=== PATIENT | male | born 1945 | race Caucasian/White ===

== ENCOUNTER 2017-08-27 16:51 | Inpatient (IN) | payer MEDICARE, MEDICAID ==
[~2017-08-27] VITALS: Wt 73.9 kg
--- NOTE | ~2017-08-27 | DS ---
[place], [place] [facility]CHARGE [id number] #: [id number] ROOM: 309 DOCTOR: DEVAN ZHANG MD BIRTHDATE: [birth year] DOS: 09/04/2017 CHIEF COMPLAINT: "I don't do that no more." HISTORY OF PRESENT ILLNESS: This is a 71-year-old white male who is known to me from his stay at [facility] in [place], [place]. The patient is admitted to the [facility] for an apparent suicide attempt. The patient was found on the day prior to admission with a sheet wrapped around his neck, stating that he was attempting to hang himself. This represents an acute change and he has never done anything like that per his brother, The patient has had a significant change in mental status that was quite precipitous starting in June of this year. 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 The patient has been residing at [facility] for approximately 1 month and has never once voiced suicidal thoughts. He has had a history of yelling profanities at staff and has been very volatile at times. He was admitted now to rule out any organic factors, to engage in individual and arthur milieu activity, to fully assess lethality, stabilize on medication, returning to the least restrictive environment when stable. PAST MEDICAL HISTORY: Remarkable for an allergy to CEFAZOLIN as well as a history of aortic stenosis, AFib, bilateral cataracts, GERD, glaucoma, history of ITP, neurogenic bladder and osteoarthritis. SUMMARY OF HOSPITAL COURSE: The patient was admitted to the unit where he was started on Remeron 15 mg at bedtime. Additionally, he was augmented with Zyprexa 2.5 mg at bedtime. Both of these medications were adjusted slightly where the Remeron was brought up to 22.5 mg a day to maximize potential benefit and the Zyprexa to 5 mg at bedtime to augment the Remeron to aid sleep, stimulate appetite and decrease mood lability. Screening examination showed him to have a low vitamin D level, so he was given vitamin D 50,000 International Units weekly. The patient had a dramatic improvement and did not exhibit any suicidal behavior. He continued to express remorse for his behavior, stating that he would never do that again. He was anxious to return back to [place]. In fact his overall demeanor was much more pleasant and conversant and even his volatile profanity driven streams of speech had been minimized. The patient tolerated the drug regimen well, noting no side effects from the medicines themselves. He improved sufficiently to return back to [facility] on September 04. I will follow him upon his return there. MENTAL STATUS AT DISCHARGE: The patient is alert and oriented to self. It is unclear if he realizes he is at [facility] and he is not necessarily oriented to time. Mood does seem to be brighter and more pleasant. On the day of discharge, he was very happy to point out that he has a new CD player in his room and he was listening to music. He was bright and conversant and engaged readily in conversation, being ready to return back home on the day of discharge. There was no symptom suggestive of hypomania or ryan. There were no overt auditory or visual hallucinations. No delusions, no paranoia. There were some gaps in short term memory. Otherwise, he was intact. [place], [place] DISCHARGE SUMMARY NAME: NICKI LUKE UNIT #: [id number] ROOM: 309 DOCTOR: DEVAN ZHANG MD BIRTHDATE: [birth year] FINAL DIAGNOSES: Major depression, recurrent, severe. PLAN: The patient is discharged back to [facility] in [place]. All of his prescriptions have been printed and will be sent with him. I will follow him upon his readmission to [facility]. DEVAN ZHANG MD CM:DISCHARG [id number] DEVAN ZHANG MD 09/04/17 1117 interface
--- NOTE | ~2017-08-27 | PR ---
[place], [place] PROGRESS NOTE NAME: NICKI LUKE UNIT #: [id number] ROOM: 309 DOCTOR: DEVAN ZHANG MD BIRTHDATE: [birth year] DOS: 09/03/2017 CHIEF COMPLAINT: "When am I going home." SUMMARY OF THE VISIT: The patient was interviewed as he was resting quietly in bed. He engaged in superficial conversation, very little spontaneity was noted. He did answer questions usually very simply. He denied any issues and denied feeling suicidal. He does seem to be tolerating his current medication regimen well. MENTAL STATUS: He is alert and oriented with some time gaps. Mood does seem to be strongly trending towards euthymia and affect is much more appropriate. There are no symptoms of hypomania or ryan. There are no overt auditory or visual hallucinations. No delusions, no paranoia. Short term memory has mild gaps, otherwise he is intact. PLAN: I will renew his p.r.n. Ativan in case he requires intervention. Continue to engage him in individual and arthur milieu activity. Continue to explore whether or not there is any lethality present, then discharged to the least restrictive environment when psychiatrically stable. DEVAN ZHANG MD CM:PNTRANS 7 DEVAN ZHANG MD 09/03/17 0958 interface
--- NOTE | ~2017-08-27 | WRIGHTHP ---
[place], [place] PATIENT HISTORY AND PHYSICAL EXAM [id number] UN[facility] #: [id number] ROOM: 309 DOCTOR: DEVAN ZHANG MD BIRTHDATE: [birth year] DOS: 08/27/2017 INITIAL PSYCHIATRIC EVALUATION. CHIEF COMPLAINT: "I don't do that no more." HISTORY OF PRESENT ILLNESS: This is a 71-year-old white male who is known to me from his stay at [facility]. The patient is admitted to the [facility] now following an apparent suicide attempt. The patient was found in his room on the day prior to admission with a sheet wrapped around his neck, stating that he was attempting to hang himself. This represents an acute change and he has never done anything like this in the past per his brother. Of note, the patient has had a significant decline in his overall presentation. 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 That said, the patient was fully conversant and able to interact extremely well while at [facility]. Nurses report that yesterday following his admission, he was yelling profanities nonstop and was very difficult to redirect. This morning after receiving a p.r.n., the patient is rather somnolent and difficult to engage. PAST MEDICAL HISTORY: Remarkable for an allergy to cefazolin as well as a history of aortic stenosis, AFib, bilateral cataracts, GERD, glaucoma, history of ITP, neurogenic bladder, and osteoarthritis. MENTAL STATUS: My mental status this morning was limited by his lack of participation. His speech was very slow and deliberate, more often than not 1-2 word responses. He lacks spontaneity. His speech was somewhat slurred and very difficult to understand. He was not agitated during this evaluation, but as mentioned previously was rather somnolent. DIAGNOSES: Major depression, recurrent, with psychotic features. Rule out intermittent explosive disorder and also mild mental retardation. PLAN: I have gone ahead and started him on Remeron 15 mg at bedtime as his nutritional status has been somewhat suspect. I will augment this with Zyprexa 2.5 mg at bedtime. Screening examination show him to have a low vitamin D level despite receiving daily, vitamin D treatment. I will change this to 50,000 International Units weekly. I also will discontinue his gabapentin to simplify his medication regimen given the fact that we will start him on the Zyprexa at this point. We will explore past workup that includes a CAT scan. We will have [employer] contact Rob to get the report from them to determine if a repeat CAT scan is required at this time. [place], [place] PATIENT HISTORY AND PHYSICAL EXAM NAME: NICKI LUKE UNIT #: [id number] ROOM: 309 DOCTOR: DEVAN ZHANG MD BIRTHDATE: [birth year] DEVAN ZHANG MD CM:HISPHYS:PATIENT HISTORY AND PHYSICAL EXAMINATION [id number] DEVAN ZHANG MD 08/28/17 1047 interface
--- NOTE | ~2017-08-27 | PR ---
[place], [place] PROGRESS NOTE NAME: NICKI LUKE UNIT #: [id number] ROOM: 309 DOCTOR: ERICA LUCERO,SHANA BIRTHDATE: [birth year] DOS: CHIEF COMPLAINT: "Good morning." SUBJECTIVE: The patient is seen this morning, lying in bed. He did engage in conversation, but he was somewhat disorganized in his thoughts and had scattered responses with short answers, stated that his birthday is coming and he is going to be 72. He could tell his date of . MENTAL STATUS EXAMINATION: The patient is awake, is oriented to person, place and approximate to time. This morning has blunted affect. No evidence of psychosis and no ryan or hypomania noted. Short term memory has some gaps, otherwise intact. PLAN: The patient is showing some improvement, so we shall continue with the same medicines and continue his care, also shall engage him on arthur milieu as he is more stable. SHANA MALDONADO MD CM:PNTRANS [id number] SHANA MALDONADO MD 08/31/17 1018 interface
--- NOTE | ~2017-08-27 | PR ---
[place], [place] PROGRESS NOTE NAME: NICKI LUKE UNIT #: [id number] ROOM: 309 DOCTOR: ERICA LUCERO,SHANA BIRTHDATE: [birth year] DOS: CHIEF COMPLAINT: "I am feeling cold." SUBJECTIVE: The patient is seen this morning in his room lying in bed, but awake, responded to questions and reported that he did sleep better last night. He has been eating his meals, taking his medicines and has per nurses' report, he has been calmer, did not have any behavioral issues. He had been in his room almost all day yesterday. MENTAL STATUS EXAMINATION: The patient is awake, alert, oriented to person, place, but not time, broken eye contact, talks in a very soft voice and at times it is hard to understand. Mood trending towards euthymia. No symptoms suggestive of ryan or hypomania. No overt psychosis. PLAN: The patient is showing improvement, so we shall continue with the same medicines, continue his care. He needs personal care as well and we shall try and engage him in arthur milieu as he is more stable. SHANA MALDONADO MD CM:CLEMENTINA 9 4 SHANA MALDONADO MD 09/02/17 0836 interface
--- NOTE | ~2017-08-27 | PR ---
[place], [place] PROGRESS NOTE NAME: NICKI LUKE UNIT #: [id number] ROOM: 309 DOCTOR: DEVAN ZHANG MD BIRTHDATE: [birth year] DOS: 08/30/2017 CHIEF COMPLAINT: "Morning." SUMMARY OF THE VISIT: The patient was interviewed as he rested quietly in bed. He engaged readily in superficial conversation. At times, his responses were inappropriate, but more often than not he gave very short and simple answers. He denied depression, denied ryan and denied psychotic symptoms. Overall, he does seem to be gradually improving. MENTAL STATUS: He is alert and oriented to person, place, but not time. Mood does seem to be trending towards euthymia. Affect is more appropriate. There is no symptom suggestive of hypomania or ryan. There are no overt auditory or visual hallucinations. No delusions, no paranoia. Short term memory has gaps, otherwise he is intact. PLAN: I will go ahead and increase the Remeron from 15 to 22.5 mg a day to combat depression. I did talk to the hospitalist nurse practitioner regarding the possibility of ruling out normal pressure hydrocephalus and she will go ahead and order an MRI of the brain. We will decide then if further workup and treatment is warranted. Continue to engage in individual and arthur milieu activity with the plan to return to the least restrictive environment when psychiatrically stable. DEVAN ZHANG MD CM:PNTRANS [id number] 4 DEVAN ZHANG MD 08/30/1715 interface
--- NOTE | ~2017-08-27 | PR ---
[place], [place] PROGRESS NOTE NAME: NICKI LUKE UNIT #: [id number] ROOM: 309 DOCTOR: ERICA LUCERO,SHANA BIRTHDATE: [birth year] DOS: CHIEF COMPLAINT: "Okay." SUBJECTIVE: The patient is seen this morning, lying in bed. He is somewhat drowsy, did not engage in meaningful conversation. He was very short and brief and at times his words did not make much sense, otherwise nurse's report is that he slept okay last night, had his meals. No behavioral issues and has been calmer. MENTAL STATUS EXAMINATION: This morning he is lying in bed. He is calm, had very short conversation, is sleepy. Speech is slurred and very difficult to understand at times. No ryan or hypomania. No overt psychosis at present. PLAN: The patient is showing some improvement, so we shall continue his care. He needs personal care as well and we shall continue his medicines and monitor progress. SHANA MALDONADO MD CM:PNTRANS [id number] SHANA MALDONADO MD 09/01/17 1247 interface
--- NOTE | ~2017-08-27 | PR ---
[place], [place] PROGRESS NOTE NAME: NICKI LUKE UNIT #: [id number] ROOM: 309 DOCTOR: MUNIR DUMONT,MY BIRTHDATE: [birth year] DOS: 08/29/2017 LOCATION: Room #309-1. CHIEF COMPLAINT: "I just bought PEG tubes and [employer] train." SUMMARY OF THE VISIT: The patient was interviewed in his room today. The patient ask, "how you found out" when asked why he tried to hang himself, but the patient kept stating he just bought himself a PEG tube and [employer] train today. He said he can dress himself now and that "I wanna go back where I came from." Denies suicidal ideation. Denies any pain or complaints. MENTAL STATUS: The patient is alert, awake and oriented to person, pleasantly confused. There is no agitation or aggression noted. Affect is appropriate. There are no overt signs and symptoms of delusions or hallucinations. PLAN: Continue Remeron 15 mg at bedtime. We will increase Zyprexa to [address] head on 08/26 revealed enlarged ventricles, uncertain the severity or significant impact on his gait and mental status. Would defer further investigations and evaluation to medical team whether MRI is warranted to rule out other organic cause. MY AMARAL, DO DEVAN ZHANG MD CM:PNTRANS [id number] MY AMARAL DO 08/29/17 1247 interface
[2017-08-27] MEDS ORDERED: BUMETANIDE0.5 MG PO (18:03)
[2017-08-27] MEDS ORDERED: CENTRUM SILVER1 EACH PO (18:04)
[2017-08-27] MEDS ORDERED: NOVAPLUS L40 MG/0.4 SC (18:04)
[2017-08-27] MEDS ORDERED: FLUCONAZOLE100 MG PO (18:05)
[2017-08-27] MEDS ORDERED: GABAPENTIN600 MG PO (18:06)
[2017-08-27] MEDS ORDERED: VISTARIL25 MG PO (18:07)
[2017-08-27] MEDS ORDERED: DUONEB 3 MG/3 ML3 M1 INH (18:08)
[2017-08-27] MEDS ORDERED: REMERON30 M1 PO (18:10)
[2017-08-27] MEDS ORDERED: Lopressor25 MG PO (18:10)
[2017-08-27] MEDS ORDERED: ARTIFICIAL TEAR15 M1 OPH (18:15)
[2017-08-27] MEDS ORDERED: PROTONIX40 MG PO (18:16)
[2017-08-27] MEDS ORDERED: K-Lor 20MEQ20 MEQ PO (18:17)
[2017-08-27] MEDS ORDERED: PREDNISONE10 MG PO (18:18)
[2017-08-27] MEDS ORDERED: CARAFATE1 G1 PO (18:25)
[2017-08-27] MEDS ORDERED: LIPITOR10 MG PO (18:25)
[2017-08-27] MEDS ORDERED: TRAMADOL HYDRO100 MG PO (18:26)
[2017-08-27] MEDS ORDERED: VITAMIN D22000 UNIT PO (18:26)
[2017-08-27] MEDS ORDERED: PROBIOTIC1 EAC1 PO (18:26)
[2017-08-27 20:25] VITALS: BP 130/76
[2017-08-27 23:00] LABS: BILIRUBIN NEGATIVE (NEGATIVE); BLOOD 3+ (NEGATIVE); CLARITY CLOUDY (CLEAR); COLOR YELLOW (YELLOW); GLUCOSE NEGATIVE (NEGATIVE); KETONE TRACE (NEGATIVE); LEUKO ESTERASE 1+ (NEGATIVE); NITRITE POSITIVE (NEGATIVE); SPECIFIC GRAVITY 1.025 (1.005-1.030); UROBILINOGEN 0.2 E.U./dl (0.2-1.0)
[2017-08-27 23:12] LABS: BACTERIA 2+; RBC 51-100 rbc/hpf (0-2)
[2017-08-27 23:13] LABS: EPITHELIAL CELLS 0-2
[2017-08-28 01:30] VITALS: BP 130/76
[2017-08-28 07:19] LABS: BASO % 0.2 % (0.0-1.0); EOS # 0.1 10*3/uL (0.0-0.4); EOS % 1.2 % (1.0-4.0); HEMATOCRIT 28.1 % (42.0-52.0); HEMOGLOBIN 8.8 g/dl (14.0-18.0); LYMPH # 1.6 10*3/uL (1.3-4.4); LYMPH % 17.4 % (27.0-41.0); MEAN CELL VOLUME 84.4 fl (80.0-94.0); MEAN CORPUSCULAR HGB 26.4 pg (27.0-31.0); MEAN CORPUSCULAR HGB CONC 31.3 g/dl (33.0-37.0); MEAN PLATELET VOLUME 9.7 fl (9.6-12.3); MONO # 0.7 10*3/uL (0.1-1.0); MONO % 7.9 % (3.0-9.0); NEUT # 6.7 10*3/uL (2.3-7.9); NEUT % 72.6 % (47.0-73.0); PLATELET COUNT AUTOMATED 314 10*3/uL (130-400); RED BLOOD COUNT 3.33 10*6/uL (4.50-5.90); RED CELL DISTRI WIDTH 18.3 % (0-14.5); WHITE BLOOD COUNT 9.2 10*3/uL (4.8-10.8)
[2017-08-28 07:46] LABS: CHLORIDE 102 mmol/L (98-107); POTASSIUM 3.1 mmol/L (3.5-5.1); SODIUM 139 mmol/L (136-145)
[2017-08-28 07:47] VITALS: BP 132/74
[2017-08-28 08:04] LABS: ALBUMIN 2.4 gm/dl (3.1-4.5); ALKALINE PHOSPHATASE 59 U/L (45-117); BUN 11 mg/dl (7-24); CHOLESTEROL 112 mg/dL (<200); CREATININE 0.57 mg/dL (0.70-1.30); HDL CHOLESTEROL 51 mg/dl (40-60); LDL CHOLESTEROL 40 mg/dL (9-159); SGOT/AST 28 IU/L (3-35); SGPT/ALT 35 U/L (12-78); TOTAL PROTEIN 5.7 gm/dL (6.4-8.2); TRIGLYCERIDES 105 mg/dl (<150); VLDL CHOLESTEROL 21 mg/dL (6-40)
[2017-08-28 09:03] LABS: VITAMIN D, 25-HYDROXY 27.7 ng/mL (30-100)
[2017-08-28 20:16] VITALS: BP 107/62
[2017-08-29 08:13] VITALS: BP 132/85
[2017-08-29 14:18] VITALS: BP 138/80
[2017-08-29 14:20] VITALS: BP 138/80
[2017-08-29 20:00] VITALS: BP 140/82
[2017-08-30 08:11] VITALS: BP 121/86
[2017-08-30 12:05] LABS: BASO % 0.2 % (0.0-1.0); EOS # 0.2 10*3/uL (0.0-0.4); EOS % 1.8 % (1.0-4.0); HEMATOCRIT 30.9 % (42.0-52.0); HEMOGLOBIN 9.6 g/dl (14.0-18.0); LYMPH # 1.6 10*3/uL (1.3-4.4); MEAN CELL VOLUME 84.7 fl (80.0-94.0); MEAN CORPUSCULAR HGB 26.3 pg (27.0-31.0); MEAN CORPUSCULAR HGB CONC 31.1 g/dl (33.0-37.0); MEAN PLATELET VOLUME 9.6 fl (9.6-12.3); MONO # 0.7 10*3/uL (0.1-1.0); MONO % 8.1 % (3.0-9.0); NEUT # 5.9 10*3/uL (2.3-7.9); NEUT % 70.3 % (47.0-73.0); PLATELET COUNT AUTOMATED 342 10*3/uL (130-400); RED BLOOD COUNT 3.65 10*6/uL (4.50-5.90); RED CELL DISTRI WIDTH 18.5 % (0-14.5); WHITE BLOOD COUNT 8.4 10*3/uL (4.8-10.8)
[2017-08-30 12:26] LABS: BUN 9 mg/dl (7-24); CHLORIDE 100 mmol/L (98-107); CREATININE 0.88 mg/dL (0.70-1.30); POTASSIUM 3.8 mmol/L (3.5-5.1); SODIUM 140 mmol/L (136-145)
[2017-08-30 14:00] VITALS: BP 126/80
[2017-08-30 22:32] VITALS: BP 119/66
[2017-08-31 07:53] VITALS: BP 110/64
[2017-08-31 20:32] VITALS: BP 120/85
[2017-09-01 07:49] VITALS: BP 122/66
[2017-09-01 20:08] VITALS: BP 114/84
[2017-09-02 08:00] VITALS: BP 122/68
[2017-09-02 19:59] VITALS: BP 121/69
[2017-09-03 08:00] VITALS: BP 126/75
[2017-09-03 20:00] VITALS: BP 113/65
[2017-09-04 08:29] VITALS: BP 118/77
[2017-09-04] MEDS ORDERED: OLANZAPINE5 MG PO (09:00)
[2017-09-04] MEDS ORDERED: MIRTAZAPINE45 MG PO (09:00)
== END 2017-09-04 15:45 | disposition home or self-care (01) | DRG 885 ==
LOC: 3N 16:51
PROVIDERS: Psychiatry & Neurology Psychiatry; Registered Nurse
DX: F33.3 Major depressive disorder, recurrent, severe with psychotic symptoms (principal); I48.2 Chronic atrial fibrillation; R45.851 Suicidal ideations; N31.9 Neuromuscular dysfunction of bladder, unspecified; I35.0 Nonrheumatic aortic (valve) stenosis; F70 Mild intellectual disabilities; R19.7 Diarrhea, unspecified; H26.9 Unspecified cataract; F41.1 Generalized anxiety disorder; H40.9 Unspecified glaucoma; K21.9 Gastro-esophageal reflux disease without esophagitis; M19.90 Unspecified osteoarthritis, unspecified site; Z79.899 Other long term (current) drug therapy; Z86.2 Personal history of diseases of the blood and blood-forming organs and certain disorders involving the immune mechanism; Z88.1 Allergy status to other antibiotic agents